=== PATIENT | male | born 1960 | race Hispanic/Latino ===

== ENCOUNTER 2020-08-05 20:00 | Emergency (ER) | payer MEDICARE, OTHER ==
[~2020-08-05] VITALS: Ht 170.2 cm; Wt 86.2 kg
[2020-08-05] MEDS ORDERED: CLEOCIN HCL300 MG PO (20:29)
[2020-08-05] MEDS ORDERED: BACITRACIN ZINC 15 GM OINT TOP ONE (20:45)
== END 2020-08-05 20:43 | disposition home or self-care (01) ==
LOC: FSED 20:12
DX: S91.202A Unspecified open wound of left great toe with damage to nail, initial encounter (principal); W22.09XA Striking against other stationary object, initial encounter; Y93.01 Activity, walking, marching and hiking; E11.22 Type 2 diabetes mellitus with diabetic chronic kidney disease; N18.6 End stage renal disease; Z99.2 Dependence on renal dialysis
CPT/HCPCS: 99283